=== PATIENT | male | born 1950 | race Caucasian/White ===

== ENCOUNTER 2020-08-06 13:56 | Emergency (ER) | payer OTHER, MEDICARE ==
[~2020-08-06] VITALS: Ht 177.8 cm; Wt 97.1 kg
[2020-08-06] MEDS ORDERED: NADO20 PO (14:26)
[2020-08-06] MEDS ORDERED: EPLERENONE50 MG PO (14:48)
[2020-08-06] MEDS ORDERED: FURO40 PO (14:48)
== END 2020-08-06 16:31 | disposition home or self-care (01) ==
LOC: ER 13:56
DX: R18.8 Other ascites (principal); Z79.899 Other long term (current) drug therapy; Z98.890 Other specified postprocedural states
CPT/HCPCS: 49083

== ENCOUNTER 2020-08-14 00:51 | Day surgery (SDC) | payer MEDICARE, OTHER ==
[~2020-08-14 00:51] MED LIST: EPLERENONE50 MG PO; FURO40 PO; NADO20 PO
== END 2020-08-14 15:35 | disposition home or self-care (01) ==
LOC: US 00:51 → ATC 00:51 → US 11:00 → EDSTATUS 11:00 → ATC 15:35
DX: K74.60 Unspecified cirrhosis of liver (principal); R18.8 Other ascites; I10 Essential (primary) hypertension; B18.2 Chronic viral hepatitis C; F10.20 Alcohol dependence, uncomplicated; D69.6 Thrombocytopenia, unspecified; Z79.899 Other long term (current) drug therapy; Z79.01 Long term (current) use of anticoagulants; Z87.891 Personal history of nicotine dependence
CPT/HCPCS: 49083; 96365; P9041; P9046

== ENCOUNTER 2020-09-01 14:45 | Day surgery (SDC) | payer MEDICARE, OTHER | END 2020-09-01 16:17 | disposition home or self-care (01) | LOC: ATC 14:45 | DX: R18.8 Other ascites (principal); K74.60 Unspecified cirrhosis of liver | CPT/HCPCS: 49083; 96365; P9041; P9046 ==

== ENCOUNTER 2020-09-15 00:30 | Day surgery (SDC) | payer MEDICARE, OTHER ==
[2020-09-15] MEDS ORDERED: FUROSEMIDE40 MG PO (11:02)
== END 2020-09-15 11:47 | disposition home or self-care (01) ==
LOC: ATC 00:30 → US 00:30 → EDSTATUS 09:00 → US 09:00 → ATC 11:47 → US 14:00
DX: K74.60 Unspecified cirrhosis of liver (principal); B18.2 Chronic viral hepatitis C; R18.8 Other ascites; I81 Portal vein thrombosis; I10 Essential (primary) hypertension; F10.20 Alcohol dependence, uncomplicated; D69.6 Thrombocytopenia, unspecified; Z87.891 Personal history of nicotine dependence; Z79.01 Long term (current) use of anticoagulants
CPT/HCPCS: 49083; 96365; P9041; P9046

== ENCOUNTER 2020-09-29 00:28 | Day surgery (SDC) | payer MEDICARE, OTHER ==
[~2020-09-29 00:28] MED LIST changes: +FUROSEMIDE40 MG PO
== END 2020-09-29 11:16 | disposition home or self-care (01) ==
LOC: US 00:28 → ATC 00:28 → US 09:00 → ATC 11:16 → US 10-02 14:00
DX: R18.8 Other ascites (principal); K74.60 Unspecified cirrhosis of liver; I10 Essential (primary) hypertension; F10.20 Alcohol dependence, uncomplicated; D69.6 Thrombocytopenia, unspecified; I81 Portal vein thrombosis; Z87.891 Personal history of nicotine dependence
CPT/HCPCS: 49083; 96365; P9041; P9046

== ENCOUNTER 2020-10-12 01:03 | Day surgery (SDC) | payer MEDICARE | END 2020-10-12 10:55 | disposition home or self-care (01) | LOC: US 01:03 → ATC 01:03 → US 09:00 → ATC 10:55 | DX: R18.8 Other ascites (principal); K74.69 Other cirrhosis of liver; F10.20 Alcohol dependence, uncomplicated; D69.6 Thrombocytopenia, unspecified; I81 Portal vein thrombosis; I10 Essential (primary) hypertension | CPT/HCPCS: 49083; 96365; P9046 ==

== ENCOUNTER 2020-10-26 10:13 | Day surgery (SDC) | payer MEDICARE, OTHER | END 2020-10-26 11:42 | disposition home or self-care (01) | LOC: ATC 10:13 | DX: K74.60 Unspecified cirrhosis of liver (principal); R18.8 Other ascites; I81 Portal vein thrombosis; I10 Essential (primary) hypertension; B18.2 Chronic viral hepatitis C; F10.20 Alcohol dependence, uncomplicated; D69.6 Thrombocytopenia, unspecified; Z87.891 Personal history of nicotine dependence | CPT/HCPCS: 49083; 96365; P9041; P9046 ==

== ENCOUNTER 2020-11-09 09:06 | Day surgery (SDC) | payer MEDICARE, OTHER | END 2020-11-09 11:39 | disposition home or self-care (01) | LOC: US 09:06 → ATC 09:06 | DX: R18.8 Other ascites (principal); K74.60 Unspecified cirrhosis of liver; I10 Essential (primary) hypertension; I81 Portal vein thrombosis; D69.6 Thrombocytopenia, unspecified; F10.20 Alcohol dependence, uncomplicated; Z87.891 Personal history of nicotine dependence | CPT/HCPCS: 49083; 96365; P9041; P9046 ==

== ENCOUNTER 2020-11-23 10:11 | Day surgery (SDC) | payer MEDICARE, OTHER | END 2020-11-23 11:21 | disposition home or self-care (01) | LOC: ATC 10:11 | DX: R18.8 Other ascites (principal); K74.60 Unspecified cirrhosis of liver; F10.20 Alcohol dependence, uncomplicated; I81 Portal vein thrombosis; I10 Essential (primary) hypertension; D69.6 Thrombocytopenia, unspecified; Z85.828 Personal history of other malignant neoplasm of skin; Z86.19 Personal history of other infectious and parasitic diseases; Z86.010 Personal history of colon polyps; Z87.442 Personal history of urinary calculi; Z86.718 Personal history of other venous thrombosis and embolism; Z79.01 Long term (current) use of anticoagulants; Z87.891 Personal history of nicotine dependence | CPT/HCPCS: 49083; 96365; P9041; P9046 ==

== ENCOUNTER 2020-12-21 08:58 | Day surgery (SDC) | payer MEDICARE, OTHER | END 2020-12-21 11:59 | disposition home or self-care (01) | LOC: US 08:58 → ATC 08:58 → US 09:00 → ATC 11:59 | DX: K74.60 Unspecified cirrhosis of liver (principal); B18.2 Chronic viral hepatitis C; I10 Essential (primary) hypertension; F17.210 Nicotine dependence, cigarettes, uncomplicated; F10.20 Alcohol dependence, uncomplicated; D69.6 Thrombocytopenia, unspecified | CPT/HCPCS: 49083; 96365; P9046 ==

== ENCOUNTER 2021-01-05 08:46 | Day surgery (SDC) | payer MEDICARE, OTHER | END 2021-01-05 12:11 | disposition home or self-care (01) | LOC: US 08:46 → ATC 08:46 → US 09:00 → ATC 12:11 | DX: R18.8 Other ascites (principal); K74.60 Unspecified cirrhosis of liver; I81 Portal vein thrombosis; I10 Essential (primary) hypertension; B18.2 Chronic viral hepatitis C; F10.20 Alcohol dependence, uncomplicated; D69.6 Thrombocytopenia, unspecified; Z79.899 Other long term (current) drug therapy; Z87.891 Personal history of nicotine dependence | CPT/HCPCS: 49083; 96365; P9041; P9046 ==

== ENCOUNTER 2021-01-18 00:05 | Day surgery (SDC) | payer OTHER, MEDICARE ==
--- NOTE | 2021-01-18 10:53 | NUR ---
PT HAD 6650 ML FLUID REMOVED DURING PARACENTESIS TODAY.
== END 2021-01-18 11:20 | disposition home or self-care (01) ==
LOC: US 00:05 → ATC 00:05 → US 09:00 → ATC 11:20
DX: R18.8 Other ascites (principal); K74.60 Unspecified cirrhosis of liver; I81 Portal vein thrombosis; F10.20 Alcohol dependence, uncomplicated; I10 Essential (primary) hypertension; F17.210 Nicotine dependence, cigarettes, uncomplicated; Z85.828 Personal history of other malignant neoplasm of skin; Z86.19 Personal history of other infectious and parasitic diseases; Z79.01 Long term (current) use of anticoagulants
CPT/HCPCS: 49083; 96365; P9041; P9046

== ENCOUNTER 2021-02-01 08:46 | Day surgery (SDC) | payer MEDICARE, OTHER ==
[2021-02-01 10:18] LABS: International Normalized Ratio 1.21; Prothrombin Time Results 12.9 Sec (9.7-11.5)
== END 2021-02-01 23:36 | disposition home or self-care (01) ==
LOC: US 08:46
PROVIDERS: Internal Medicine
DX: R18.8 Other ascites (principal); K74.60 Unspecified cirrhosis of liver
CPT/HCPCS: 49083; 85610; 85730

== ENCOUNTER 2021-02-15 00:11 | Day surgery (SDC) | payer MEDICARE, OTHER | END 2021-02-15 11:10 | disposition home or self-care (01) | LOC: ATC 00:11 → US 00:11 → ATC 11:10 | DX: R18.8 Other ascites (principal); K74.60 Unspecified cirrhosis of liver; I10 Essential (primary) hypertension; Z87.891 Personal history of nicotine dependence; Z86.19 Personal history of other infectious and parasitic diseases | CPT/HCPCS: 49083; P9041; P9046 ==

== ENCOUNTER 2021-02-23 05:05 | Inpatient (IN) | payer MEDICARE, OTHER ==
[~2021-02-23] VITALS: Ht 177.8 cm; Wt 76.5 kg
[2021-02-23 05:54] LABS: BASOPHILS ABSOLUTE AUTO 0.03 K/mm3 (0.00-0.23); BASOPHILS PERCENT AUTO 1 % (0-2); EOSINOPHILS ABSOLUTE AUTO 0.01 K/mm3 (0.00-0.68); EOSINOPHILS PERCENT AUTO 0 % (0-6); Hematocrit 36.7 % (37.0-53.0); Hemoglobin 12.8 g/dL (13.5-17.5); IMMATURE GRAN ABSOLUTE AUTO 0.01 K/mm3 (0.00-0.10); IMMATURE GRAN PERCENT AUTO 0 % (0-1); LYMPHOCYTES ABSOLUTE AUTO 0.49 K/mm3 (0.84-5.20); LYMPHOCYTES PERCENT AUTO 9 % (21-46); MONOCYTES PERCENT AUTO 10 % (4-13); Mean Corpuscular HGB 36.6 pg (26.0-34.0); Mean Corpuscular HGB Conc 34.9 g/dL (31.5-36.5); Mean Corpuscular Volume 105 fL (80-100); Mean Platelet Volume 9.5 fL (9.1-12.4); NEUTROPHILS ABSOLUTE AUTO 4.23 K/mm3 (1.96-9.15); NEUTROPHILS PERCENT AUTO 80 % (41-73); Platelet Count 106 K/mm3 (150-400); RDW Coefficient Variation 15.6 % (11.7-14.2); RDW Standard Deviation 59.6 fL (35.1-46.3); White Blood Cell Count 5.27 K/mm3 (4.00-11.30)
[2021-02-23 06:12] LABS: Alanine Aminotransfer (ALT/SGP 29 U/L (12-78); Albumin, Blood 2.6 g/dL (3.4-5.0); Albumin/Globulin Ratio 0.5 (0.8-1.8); Alk Phos 126 U/L (50-136); Anion Gap 8 mmol/L (6-16); Aspartate Aminotrans (AST/SGOT 45 U/L (12-37); Bilirubin, Total 4.9 mg/dL (0.1-1.0); Blood Urea Nitrogen 19 mg/dL (8-24); CO2, Blood 25 mmol/L (21-32); Calcium, Blood 8.6 mg/dL (8.5-10.1); Chloride, Blood 103 mmol/L (98-108); Creatinine, Blood 0.68 mg/dL (0.60-1.20); Globulin, Blood 4.9 g/dL (2.2-4.0); Glomerular Filtration Rate >60 (60-); Glucose, Blood 100 mg/dL (70-99); Potassium, Blood 3.5 mmol/L (3.5-5.5); Sodium, Blood 136 mmol/L (136-145); Total Protein, Blood 7.5 g/dL (6.4-8.2); Troponin I <0.015 ng/mL (0.000-0.040)
[2021-02-23 06:25] LABS: BASOPHILS PERCENT MAN 0 % (0-2); EOSINOPHILS PERCENT MAN 0 % (0-6); LYMPHOCYTES ABSOLUTE MAN 0.31 K/mm3 (0.84-5.20); LYMPHOCYTES PERCENT MAN 6 % (21-46); MONOCYTES ABSOLUTE MAN 0.36 K/mm3 (0.16-1.47); MONOCYTES PERCENT MAN 7 % (4-13); MYELOCYTE ABSOLUTE MAN 0.05 K/mm3 (0.00-0.00); MYELOCYTE PERCENT MAN 1 % (0-0); NEUTROPHILS ABSOLUTE MAN 4.53 K/mm3 (1.96-9.15); SEG NEUTROPHILS PERCENT MAN 86 % (41-73); TOTAL CELLS COUNTED 100
[2021-02-23 07:05] LABS: Automated BF RBC Count 0.003 M/mm3 (0-0); Body Fluid WBC Count 2710 /mm3 (0-999); RBC Count, Body Fluid 3000 /mm3 (0-0)
[2021-02-23 07:59] LABS: Appearance, Body Fluid Turbid (Clear); Color, Body Fluid Yellow (None-Yellow); Total Cell Count, Body Fluid 100
[2021-02-23 08:04] LABS: Source, Urine Voided
[2021-02-23 08:16] LABS: Appearance, Urine Clear (Clear); Blood, Urine 1+ (Neg); Color, Urine Amber (P-Yellow); Glucose Qualitative, Urine Neg (Neg); Ketones, Urine Neg (Neg); Leukocyte Esterase, Urine 1+ (Neg); Nitrite, Urine Neg (Neg); Protein, Urine 1+ (Neg); Specific Gravity, Urine 1.025 (1.003-1.022); Urobilinogen, Urine 2+ (Normal)
[2021-02-23 08:34] LABS: Mucus Heavy (0-Heavy); Red Blood Cells, Urine 0-2 /hpf (0-2); Squamous Epithelial Cells Rare /hpf (Few)
[2021-02-23 08:35] LABS: Bacteria Rare /hpf
--- NOTE | 2021-02-23 10:22 | NUR ---
ADMIT: 01/24/21 DISCHARGE: TBD DX: Ascites CC: [facility] RESIDENCE: [address] [place] [address] [place] [id number] Caregiver Marry York, Spouse / Partner, [phone] PMH: HTN, chronic hep C, cirrhosis of liver, esophageal varices, thrombocytopenic disorder DME: None CCM: None HOME HEALTH: None Notes added to [facility] Medicine EMR for continuity in care PCP/[facility] team.
[2021-02-23] MEDS ORDERED: CHLO25B PO (11:45)
[2021-02-23] MEDS ORDERED: Nexium40 MG PO (11:46)
[2021-02-23] MEDS ORDERED: LISI20 PO (11:46)
[2021-02-23 15:58] LABS: Automated BF RBC Count 0.014 M/mm3 (0-0); RBC Count, Body Fluid 14000 /mm3 (0-0)
[2021-02-23 16:14] LABS: Automated BF WBC Count 11.224 K/mm3 (0-999); Body Fluid WBC Count 11224 /mm3 (0-999)
[2021-02-23 16:16] LABS: Albumin, Body Fluid 1.3 g/dL
[2021-02-23 16:18] LABS: Glucose, Body Fluid 115 mg/dL
[2021-02-23 16:19] LABS: Appearance, Body Fluid Turbid (Clear); Color, Body Fluid Yellow (None-Yellow)
[2021-02-23 16:31] LABS: Lactate Dehydrogenase, Body Fl 282 U/L
[2021-02-23 16:37] LABS: Total Cell Count, Body Fluid 100
--- NOTE | 2021-02-23 17:27 | NUR ---
UPDATE WITH DR. MALDONADO: SPOKE WITH DR. MALDONADO ABOUT PATIENT STATUS TO BE ABLE TO SPEAK WITH THE PATIENT'S . UPDATED ON PATIENT'S LAB RESULTS AND GIVEN THE OKAY TO SPEAK ABOUT THIS WITH THE PATIENT'S . VERIFIED WITH DR. MALDONADO THAT THE LABS ON THE PLEURAL FLUID WERE NECESSARY AND HAD BEEN RE-ORDERED (HAD PREVIOUSLY VERIFIED WITH LAB AND ENSURED THAT THEY WERE RE-ENTERED). DISCUSSED PATIENT'S ELEVATION IN TEMPERATURE. NEW ORDERS ENTERED.
--- NOTE | 2021-02-23 17:29 | NUR ---
ADMISSION: LATE ENTRY: 1400: PATIENT UP TO THE UNIT. PATIENT ALERT AND ORIENTED X4. REPORT RECEIVED FROM NUZHAT EVANEGLISTA RN. PATIENT REPORTS SOME SOB AT REST AND WITH ACTIVITY. PATIENT ABLE TO WALK TO THE RESTROOM WITHOUT DIFFICULTY. REPORTED FEELING SOMEWHAT BETTER THAN THIS MORNING.
--- NOTE | 2021-02-23 17:31 | NUR ---
THORACENTEIS: LATE ENTRY: 1530 PATIENT BACK TO THE UNIT AFTER THORACENTESIS. PATIENT REPORTS THAT HE IS FEELING FINE. CONTINUES TO HAVE MINIMAL SOB. SITE IS C/D/I. NO SWELLING OR BLEEDING NOTED.
--- NOTE | 2021-02-23 19:54 | NUR ---
END OF SHIFT NOTE: PATIENT DENIED PAIN THROUGHOUT SHIFT. PATIENT REPORTED SOME DISCOMFORT RELATED TO SHORTNESS OF BREATH AND ASCITES. PATIENT REPORTED IMPROVEMENT SINCE THE PARACENTESIS AND MORE IMPROVEMENT AFTER THE THORACENTESIS. PATIENT AMBULATED TO THE BATHROOM WITHOUT DIFFICULTY OR RESPIRATORY DISTRESS. PATIENT TOLERATED THORACENTESIS. NO INCREASE IN SHORTNESS OF BREATH OR CHEST PAIN POST PROCEDURE. PATIENT EXPERIENCED A MILD FEVER THIS EVENING. DISCUSSED WITH DR. MALDONADO. NEW ORDERS ENTERED. PATIENT REFUSED PRN TYLENOL WHEN OFFERED. PATIENT'S SIGNIFICANT OTHER VISITED THE PATIENT THIS EVENING. SHE IS SUPPORTIVE AND INVOLVED IN HIS CARE.
[2021-02-24 05:40] LABS: BASOPHILS ABSOLUTE AUTO 0.01 K/mm3 (0.00-0.23); BASOPHILS PERCENT AUTO 0 % (0-2); EOSINOPHILS PERCENT AUTO 3 % (0-6); Hematocrit 29.5 % (37.0-53.0); Hemoglobin 10.2 g/dL (13.5-17.5); IMMATURE GRAN ABSOLUTE AUTO 0.02 K/mm3 (0.00-0.10); IMMATURE GRAN PERCENT AUTO 1 % (0-1); LYMPHOCYTES ABSOLUTE AUTO 0.31 K/mm3 (0.84-5.20); LYMPHOCYTES PERCENT AUTO 10 % (21-46); MONOCYTES ABSOLUTE AUTO 0.51 K/mm3 (0.16-1.47); MONOCYTES PERCENT AUTO 17 % (4-13); Mean Corpuscular HGB 36.3 pg (26.0-34.0); Mean Corpuscular HGB Conc 34.6 g/dL (31.5-36.5); Mean Corpuscular Volume 105 fL (80-100); Mean Platelet Volume 9.9 fL (9.1-12.4); NEUTROPHILS ABSOLUTE AUTO 2.05 K/mm3 (1.96-9.15); NEUTROPHILS PERCENT AUTO 68 % (41-73); Platelet Count 69 K/mm3 (150-400); RDW Coefficient Variation 14.8 % (11.7-14.2); Red Blood Cell Count 2.81 M/mm3 (4.30-5.90)
--- NOTE | 2021-02-24 06:16 | NUR ---
SHIFT SUMMARY AOX4. ANSWERS QUESTIONS APPROPRIATE. PLEASENT & COOPERATIVE. TELE NSR @81. MILD TEMP 100.0, GAVE TYLENOL 1X & TEMP WNL SINCE. REST OF VITALS STABLE. DENIES PAIN, N/V. STATES SOB IS "BETTER" SINCE HE FIRST CAME TO HOSPITAL, & HAD PARACENTESIS IN ER. SPO2 >90% ON RA. LUNGS DIM c FINE CRACKLES LLL. ABD MOD DISTENDED, PT REPORTED FEELING LIKE "ITS FILLING BACK UP AGAIN." CALL LIGHT IN REACH. WCTM UNTIL DAY NURSE ASSUMES CARE.
[2021-02-24 06:21] LABS: BASOPHILS PERCENT MAN 0 % (0-2); EOSINOPHILS ABSOLUTE MAN 0.09 K/mm3 (0.00-0.68); EOSINOPHILS PERCENT MAN 3 % (0-6); LYMPHOCYTES ABSOLUTE MAN 0.12 K/mm3 (0.84-5.20); LYMPHOCYTES PERCENT MAN 4 % (21-46); MONOCYTES ABSOLUTE MAN 0.42 K/mm3 (0.16-1.47); MONOCYTES PERCENT MAN 14 % (4-13); NEUTROPHILS ABSOLUTE MAN 2.37 K/mm3 (1.96-9.15); SEG NEUTROPHILS PERCENT MAN 79 % (41-73); TOTAL CELLS COUNTED 100
[2021-02-24 06:26] LABS: Alanine Aminotransfer (ALT/SGP 17 U/L (12-78); Albumin, Blood 2.6 g/dL (3.4-5.0); Albumin/Globulin Ratio 0.8 (0.8-1.8); Alk Phos 82 U/L (50-136); Anion Gap 7 mmol/L (6-16); Aspartate Aminotrans (AST/SGOT 28 U/L (12-37); Bilirubin, Total 3.4 mg/dL (0.1-1.0); Blood Urea Nitrogen 18 mg/dL (8-24); Bun/Creatinine Ratio 34.7 (12.0-20.0); CO2, Blood 24 mmol/L (21-32); Calcium, Blood 8.4 mg/dL (8.5-10.1); Chloride, Blood 104 mmol/L (98-108); Creatinine, Blood 0.52 mg/dL (0.60-1.20); Globulin, Blood 3.4 g/dL (2.2-4.0); Glomerular Filtration Rate >60 (60-); Glucose, Blood 89 mg/dL (70-99); Potassium, Blood 3.5 mmol/L (3.5-5.5); Sodium, Blood 135 mmol/L (136-145)
--- NOTE | 2021-02-24 18:13 | NUR ---
PATIENT STATES HE IS FEELING MUCH BETTER TODAY. B/P LOW THIS AM AND B/P MEDICATIONS HELD PER DR. MALDONADO. NURSE NOTIFY LATER IN THE DAY TO GIVE LASIX AND INSPRA. PATIENT IS A/OX4, UP INDEPENDENTLY IN ROOM. ABDOMEN SEVERELY DISTENDED AND FIRM DUE TO ASCITES. LAST PARACENTESIS WAS YESTERDAY. TOLERATING DIET. CONTINENT OFF BOWEL/BLADDER. CALM AND COOPERATIVE WITH CARE THIS SHIFT.
[2021-02-25] MEDS ORDERED: CIPR500 PO (12:13)
--- NOTE | 2021-02-25 13:03 | NUR ---
RN note: Pt discharged at 1300. Pt IV's removed with no s/s of infection. Pt DC instructions given with spouse present. Pt escorted down to vehicle with JONY Amin.
--- NOTE | 2021-03-01 09:12 | NUR ---
Previous note did not save to [facility]: Update 02/25/21: Per chart review with Dr. Coleman, pt. appropriate for discharge. Discussed discharge planning with pt. Pt. denied any concerns regarding discharge and stated that he was eager to go home. 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 Pt. denied concerns regarding safety or mobility within the home setting. He is scheduled for a F/U with Dr. Coleman per his request. Dr. Coleman willing to work him in next week. Scheduled for 03/03/21 at 1:40 pm. Pt. denied any further questions or concerns. [facility] team to follow-up with pt. post discharge.
== END 2021-02-25 13:09 | disposition home or self-care (01) | DRG 441 ==
LOC: ER 05:05 → ERHOLD 09:05 → MEDS 14:01
PROVIDERS: Emergency Medicine; ADMIT Family Medicine
PROC: 0W9G3ZZ Drainage of Peritoneal Cavity, Percutaneous Approach (ICD-10-PCS; principal; 2021-02-23)
PROC: 0W993ZZ Drainage of Right Pleural Cavity, Percutaneous Approach (ICD-10-PCS; 2021-02-23)
DX: K72.00 Acute and subacute hepatic failure without coma (principal); K65.2 Spontaneous bacterial peritonitis; R18.8 Other ascites; D61.818 Other pancytopenia; E87.2 Acidosis; J90 Pleural effusion, not elsewhere classified; K74.60 Unspecified cirrhosis of liver; I10 Essential (primary) hypertension; B18.2 Chronic viral hepatitis C; I34.0 Nonrheumatic mitral (valve) insufficiency; Z98.890 Other specified postprocedural states; Z87.891 Personal history of nicotine dependence; Z79.899 Other long term (current) drug therapy
CPT/HCPCS: 32555; 36415; 49083; 70450; 71045; 71046; 71260; 80053; 81001; 82042; 82140; 82945; 83605; 83615; 83880; 84157; 84484; 85025; 87040; 87070; 87075; 87086; 87205; 88108; 88305; 89051; 93005; 93010; 96365-59; 96366-59; 96367; 96368; 96375-59; 99285-25; A9270; J0696; J1940; J3370; J3480; J7050; P9046; Q9967

== ENCOUNTER 2021-03-01 08:50 | Day surgery (SDC) | payer MEDICARE, OTHER ==
[~2021-03-01 08:50] MED LIST changes: +CHLO25B PO; +CIPR500 PO; +LISI20 PO; +Nexium40 MG PO
== END 2021-03-01 11:22 | disposition home or self-care (01) ==
LOC: US 08:50 → ATC 08:50 → US 09:00 → ATC 11:22
DX: R18.8 Other ascites (principal); K74.60 Unspecified cirrhosis of liver; I10 Essential (primary) hypertension; F10.20 Alcohol dependence, uncomplicated; Z87.891 Personal history of nicotine dependence; Z85.828 Personal history of other malignant neoplasm of skin; Z86.19 Personal history of other infectious and parasitic diseases
CPT/HCPCS: 49083; 96365; P9041; P9046

== ENCOUNTER 2021-03-15 10:22 | Day surgery (SDC) | payer MEDICARE, OTHER | END 2021-03-15 11:28 | disposition home or self-care (01) | LOC: ATC 10:22 | DX: K74.60 Unspecified cirrhosis of liver (principal); R18.8 Other ascites; F10.20 Alcohol dependence, uncomplicated; I10 Essential (primary) hypertension; Z87.891 Personal history of nicotine dependence; Z86.19 Personal history of other infectious and parasitic diseases | CPT/HCPCS: 49083; 96365; P9041; P9046 ==

== ENCOUNTER 2021-03-29 08:46 | Day surgery (SDC) | payer MEDICARE, OTHER | END 2021-03-29 11:15 | disposition home or self-care (01) | LOC: US 08:46 | DX: K74.60 Unspecified cirrhosis of liver (principal); R18.8 Other ascites | CPT/HCPCS: 49083; 96365; P9041; P9046 ==

== ENCOUNTER 2021-05-10 09:01 | Day surgery (SDC) | payer MEDICARE, BC ==
--- NOTE | 2021-05-10 10:59 | NUR ---
TALKED WITH PHARMACY, THEY SENT 3 BOTTLES DOWN TOTALLY 75 GRAMS, PT HAD 5.7 LITERS TAKEN OFF, CALCULATING PT WOULD ONLY GET 1 BOTTLE, CONFIRMED WITH [facility]. 2 BOTTLES RETURNED
== END 2021-05-10 10:55 | disposition home or self-care (01) ==
LOC: US 09:01 → ATC 09:01
DX: K74.60 Unspecified cirrhosis of liver (principal); R18.8 Other ascites; I10 Essential (primary) hypertension; B18.2 Chronic viral hepatitis C; F10.20 Alcohol dependence, uncomplicated; Z87.891 Personal history of nicotine dependence
CPT/HCPCS: 49083; 96365; P9046

== ENCOUNTER 2023-06-22 19:35 | Emergency (ER) | payer MEDICARE, BC ==
[~2023-06-22] VITALS: Ht 177.8 cm; Wt 90.7 kg
[2023-06-22 20:49] LABS: BASOPHILS ABSOLUTE AUTO 0.02 K/mm3 (0.00-0.23); BASOPHILS PERCENT AUTO 1 % (0-2); EOSINOPHILS ABSOLUTE AUTO 0.02 K/mm3 (0.00-0.68); EOSINOPHILS PERCENT AUTO 1 % (0-6); Hematocrit 38.6 % (37.0-53.0); Hemoglobin 12.7 g/dL (13.5-17.5); IMMATURE GRAN ABSOLUTE AUTO 0.01 K/mm3 (0.00-0.10); IMMATURE GRAN PERCENT AUTO 0 % (0-1); LYMPHOCYTES ABSOLUTE AUTO 0.31 K/mm3 (0.84-5.20); LYMPHOCYTES PERCENT AUTO 8 % (21-46); MONOCYTES ABSOLUTE AUTO 0.46 K/mm3 (0.16-1.47); MONOCYTES PERCENT AUTO 11 % (4-13); Mean Corpuscular HGB 33.3 pg (26.0-34.0); Mean Corpuscular HGB Conc 32.9 g/dL (31.5-36.5); Mean Corpuscular Volume 101 fL (80-100); Mean Platelet Volume 10.6 fL (9.1-12.4); NEUTROPHILS ABSOLUTE AUTO 3.31 K/mm3 (1.96-9.15); NEUTROPHILS PERCENT AUTO 80 % (41-73); Platelet Count 101 K/mm3 (150-400); RDW Coefficient Variation 12.6 % (11.7-14.2); RDW Standard Deviation 47.5 fL (35.1-46.3); Red Blood Cell Count 3.81 M/mm3 (4.30-5.90); White Blood Cell Count 4.13 K/mm3 (4.00-11.30)
[2023-06-22 20:50] LABS: Source, Urine Clean Catch
[2023-06-22 20:57] LABS: Appearance, Urine Clear (Clear); Bilirubin, Urine Neg (Neg); Blood, Urine 5+ (Neg); Color, Urine Yellow (P-Yellow); Glucose Qualitative, Urine Neg (Neg); Ketones, Urine 2+ (Neg); Leukocyte Esterase, Urine Neg (Neg); Nitrite, Urine Neg (Neg); Protein, Urine 3+ (Neg); Urobilinogen, Urine NORM (Normal)
[2023-06-22 21:06] LABS: Albumin/Globulin Ratio 0.7 (0.8-1.8); Bilirubin, Total 1.9 mg/dL (0.1-1.0); Bun/Creatinine Ratio 17.8 (12.0-20.0); Calcium, Blood 8.7 mg/dL (8.5-10.1); Creatinine, Blood 0.79 mg/dL (0.60-1.20); Globulin, Blood 4.6 g/dL (2.2-4.0); Potassium, Blood 3.5 mmol/L (3.5-5.5); Total Protein, Blood 7.6 g/dL (6.4-8.2)
[2023-06-22 21:07] LABS: Bacteria Few /hpf; Squamous Epithelial Cells Not Seen /hpf (Few); White Blood Cells, Urine 0-2 /hpf (0-5)
[2023-06-22 23:17] LABS: Magnesium, Blood 1.5 mg/dL (1.6-2.4)
[2023-06-22 23:51] LABS: International Normalized Ratio 1.3; Prothrombin Time Results 13.4 Sec (9.7-11.5)
[2023-06-23] MEDS ORDERED: Roxicodone5 MG PO (00:49)
[2023-06-23 01:30] VITALS: BP 171/87
== END 2023-06-23 02:20 | disposition home or self-care (01) ==
LOC: ER 19:35
PROVIDERS: Emergency Medicine
DX: K76.6 Portal hypertension (principal); K75.81 Nonalcoholic steatohepatitis (NASH); C22.7 Other specified carcinomas of liver; E86.0 Dehydration; Z79.899 Other long term (current) drug therapy
CPT/HCPCS: 74176; 80053; 81001; 82140; 83605; 83690; 83735; 84145; 85025; 85610; 93005; 93010; 96361; 96365; 96375; 99284-25; J0696; J1170; J7120